=== PATIENT | male | born 1985 | race Caucasian/White ===

== ENCOUNTER 2021-02-28 08:27 | Emergency (ER) | payer MEDICARE, MEDICAID ==
[~2021-02-28] VITALS: Ht 172.7 cm; Wt 110.0 kg
[2021-02-28 08:31] VITALS: BP 131/81
[2021-02-28] MEDS ORDERED: ARIP30TA PO (08:35)
== END 2021-02-28 08:56 | disposition home or self-care (01) ==
LOC: EMS 08:36
DX: S01.111D Laceration without foreign body of right eyelid and periocular area, subsequent encounter (principal); F32.9 Major depressive disorder, single episode, unspecified; F20.9 Schizophrenia, unspecified; F12.90 Cannabis use, unspecified, uncomplicated; Z79.899 Other long term (current) drug therapy; Z48.02 Encounter for removal of sutures; X58.XXXD Exposure to other specified factors, subsequent encounter
CPT/HCPCS: 99281; Z7502